=== PATIENT | male | born 1985 | race African-American/Black ===

== ENCOUNTER 2018-07-06 02:55 | Emergency (ER) | payer MEDICAID, OTHER ==
[~2018-07-06] VITALS: Ht 175.3 cm; Wt 87.0 kg
[2018-07-06 02:59] VITALS: BP 140/90
== END 2018-07-06 04:30 | disposition left against medical advice (07) ==
LOC: ER 02:55
DX: Z53.21 Procedure and treatment not carried out due to patient leaving prior to being seen by health care provider (principal)